=== PATIENT | female | born 1965 | race Caucasian/White ===

== ENCOUNTER 2023-07-24 00:54 | Emergency (ER) | payer BC, OTHER ==
[~2023-07-24] VITALS: Ht 165.1 cm; Wt 75.0 kg
[2023-07-24 00:54] VITALS: BP 140/69; PULSE 93; RESP 18; O2SAT 97
== END 2023-07-24 03:30 | disposition left against medical advice (07) ==
LOC: ER 00:57
DX: M25.562 Pain in left knee (principal); W01.0XXA Fall on same level from slipping, tripping and stumbling without subsequent striking against object, initial encounter; Y93.89 Activity, other specified; Y92.89 Other specified places as the place of occurrence of the external cause; Y99.8 Other external cause status
CPT/HCPCS: 73562